=== PATIENT | male | born 1960 | race African-American/Black ===

== ENCOUNTER 2016-09-09 20:05 | Emergency (ER) | payer OTHER ==
[~2016-09-09] VITALS: Ht 180.3 cm; Wt 95.5 kg
[~2016-09-09 20:05] MED LIST: ADVAIR 500/501 DISK IH; ALBUTEROL17 GM IH; AMBIEN10 MG PO; ASPIRIN81 M2 PO; COGENTIN1 MG PO; DAILY VITAMIN1 EAC8 PO; DUONEB 2.5-0.5 M3 ML IH; ECPIRIN325 M1 PO; Ecotrin PO; FIORICET 50-321 EACH PO; FLEXERIL10 MG PO; FLONASE16 G1 BOTH NARES; GABAPENTIN100 MG PO; HYDROCHLOROTHIA25 MG PO; KEFLEX500 MG PO; LEVAQUIN500 MG PO; LO-DOSE ASPIRIN81 M1 PO; METOCLOPRAMIDE10 MG PO; MIRALAX255 GM PO; PANTOPRAZOLE SO40 MG PO; PERCOCET 5/31 TABLET PO; PREDNISONE20 MG PO; PRINIVIL10 MG PO; PROAIR HFA8.5 GM IH; PROLIXIN10 MG PO; PROTONIX20 MG PO; PROTONIX40 MG PO; PROVENTIL,2.5 MG/3 M IH; Protonix PO; Reglan PO; SALINE NASAL SP45 ML BOTH NARES; SUBOXONE 8 M1 TABLET SL; TENORMIN50 MG PO; TRAMADOL HCL50 MG PO; Tylenol Regular Stre PO; VENTOLIN HFA18 GM IH; XANAX2 MG PO; ZESTRIL,PRINIVI10 MG PO; ZITHROMAX Z-PA250 MG PO; ZOLOFT100 MG PO
[2016-09-09 20:31] LABS: HEMATOCRIT 41.3 % (38.0-50.0); MCH 28.7 PG (29.0-34.0); MCHC 32.9 G/DL (30.0-36.0); MCV 87.1 FL (86-99); MEAN PLAT.VOLUME 9.6 uM^3 (9.0-12.4); PLATELET COUNT 183 K/uL (156-360); RBC DIS.WIDTH-CV 12.7 % (11.8-14.6); RBC DIS.WIDTH-SD 39.7 % (39-53); RED BLOOD COUNT 4.74 M/uL (4.00-5.50); WHITE BLOOD COUNT 7.4 K/uL (4.1-10.2)
[2016-09-09 21:21] LABS: CHLORIDE 103 mEq/L (99-109); POTASSIUM 4.5 mEq/L (3.7-5.4); SODIUM 137 mEq/L (136-147)
[2016-09-09 21:23] LABS: GLUCOSE 91 mg/dL (70-99)
[2016-09-09 21:24] LABS: ANION GAP 10 MEQ/L (2-14)
[2016-09-09 21:25] LABS: TOTAL BILIRUBIN 0.2 mg/dL (0.0-1.0)
[2016-09-09 21:25] LABS: ADD MIUA? YES; BILIRUBIN NEGATIVE; BLOOD LARGE; COLOR BLOODY ((YELLOW)); GLUCOSE (STRIP) NEGATIVE; KETONES NEGATIVE; LEUKOCYTES NEGATIVE; NITRITE NEGATIVE; PROTEIN (STRIP) 300; SPECIFIC GRAVITY 1.015 (1.000-1.030); UROBILINOGEN 0.2 MG/DL (0.2-1.0)
[2016-09-09 21:26] LABS: ALKALINE PHOSPHATASE 112 IU/L (3-129)
[2016-09-09 21:26] LABS: RED BLOOD CELLS TNTC /HPF (0-5); UCUL ADDED? YES
[2016-09-09 21:27] LABS: GFR ESTIMATE (CALCULATED) > 59 mL/min/
[2016-09-09 21:28] LABS: UREA NITROGEN (BUN) 14 mg/dL (9-23)
[2016-09-09] MEDS ORDERED: CIPRO500 MG PO (21:59)
[2016-09-09 22:22] VITALS: BP 167/106
== END 2016-09-09 22:23 | disposition home or self-care (01) ==
LOC: EME 20:05
DX: N39.0 Urinary tract infection, site not specified (principal); I10 Essential (primary) hypertension; R31.0 Gross hematuria; F17.200 Nicotine dependence, unspecified, uncomplicated
CPT/HCPCS: 74176; 80053; 81003; 85027; 87086; 99281; 99284

== ENCOUNTER → 2016-10-26 | Outpatient (CLI) | payer OTHER ==
[~2016-10-26] MED LIST changes: +CIPRO500 MG PO; +MULTI VITAMIN1 EACH PO; +ZESTRIL20 MG PO
[2016-10-26 09:49] LABS: HEMATOCRIT 40.2 % (38.0-50.0); MCH 28.3 PG (29.0-34.0); MCHC 32.8 G/DL (30.0-36.0); MCV 86.1 FL (86-99); MEAN PLAT.VOLUME 9.8 uM^3 (9.0-12.4); PLATELET COUNT 188 K/uL (156-360); RBC DIS.WIDTH-CV 12.6 % (11.8-14.6); RBC DIS.WIDTH-SD 38.1 % (39-53); RED BLOOD COUNT 4.67 M/uL (4.00-5.50); WHITE BLOOD COUNT 8.5 K/uL (4.1-10.2)
[2016-10-26 09:59] LABS: INTER. NORMALIZED RATIO 1.1; PROTHROMBIN TIME 10.9 (9.2-11.2); PTT 24.7 (25-32)
== END | disposition home or self-care (01) ==
LOC: OPR 10-14 09:00 → EDSTATUS 10-14 09:00 → OPR 08:42
PROVIDERS: Radiology Diagnostic Radiology
PROC: 0FB03ZX Excision of Liver, Percutaneous Approach, Diagnostic (ICD-10-PCS; principal; 2016-10-26)
DX: B18.2 Chronic viral hepatitis C (principal); R74.0 Nonspecific elevation of levels of transaminase and lactic acid dehydrogenase [LDH]; K76.0 Fatty (change of) liver, not elsewhere classified; K21.9 Gastro-esophageal reflux disease without esophagitis; R11.0 Nausea; R13.10 Dysphagia, unspecified
CPT/HCPCS: 77012; 85027; 85610; 85730; 88305; 88313; J3010